=== PATIENT | female | born 1935 | race Two or more races ===

== ENCOUNTER 2017-07-31 17:47 | Inpatient (IN) | payer MEDICARE, BC ==
[~2017-07-31] VITALS: Ht 167.6 cm; Wt 76.7 kg
[2017-07-31] MEDS ORDERED: IV NS 0.9% 1,000 ML BAG IV ONE (18:00)
[2017-07-31] MEDS ORDERED: LORAZEPAM INJ 2 MG/ML VIAL IV ONE (18:00)
--- NOTE | 2017-07-31 18:05 | NUR ---
AAOX3, BIB [facility] FOR WEAKNESS AND DECREASED APPETITE. SKIN IS WARM AND DRY. RESP IS EVEN AND UNLABORED WITH NAD NOTED. SKIN IS WARM AND DRY. PLACED ON MONITOR AND HOSPITAL GOWN. AWAITING MD FOR EVAL.
[2017-07-31] MEDS ORDERED: ATOR40TA PO (18:15)
[2017-07-31] MEDS ORDERED: LORA0.5T PO (18:15)
[2017-07-31] MEDS ORDERED: QUET25TA PO (18:15)
[2017-07-31] MEDS ORDERED: ASPI81TA2 PO (18:15)
[2017-07-31] MEDS ORDERED: OLAN2.5T3 PO (18:15)
[2017-07-31] MEDS ORDERED: ZOLP5TAB7 PO (18:15)
[2017-07-31] MEDS ORDERED: LOPE2CAP PO (18:15)
[2017-07-31] MEDS ORDERED: ESCI10TA PO (18:15)
[2017-07-31] MEDS ORDERED: ACET-2605 PO (18:15)
[2017-07-31 18:18] LABS: BASOPHILS # (AUTO) 0.4 /CMM (0.0-0.2); BASOPHILS % (AUTO) 4.9 % (0.0-2.0); EOSINOPHILS # (AUTO) 0.4 /CMM (0.0-0.7); EOSINOPHILS % (AUTO) 4.6 % (0.0-6.0); HEMATOCRIT 42 % (33-45); HEMOGLOBIN 13.8 g/dL (11.5-14.8); LYMPHOCYTES # (AUTO) 1.5 /CMM (0.8-4.8); LYMPHOCYTES % (AUTO) 18.4 % (20.0-44.0); MEAN CORPUSCULAR HEMOGLOBIN 30 PG (26.0-33.0); MEAN CORPUSCULAR HGB CONC 33 g/dl (31.0-36.0); MEAN CORPUSCULAR VOLUME 92 fL (82-100); MONOCYTES # (AUTO) 0.9 /CMM (0.1-1.30); MONOCYTES % (AUTO) 11.3 % (2.0-12.0); NEUTROPHILS % (AUTO) 60.8 % (43.0-81.0); PLATELET COUNT (AUTO) 260 /CMM (150-450); RED BLOOD CELL COUNT(AUTO) 4.52 MIL/uL (4.0-5.2); WHITE BLOOD COUNT (AUTO) 8.2 K/uL (4.3-11.0)
[2017-07-31 18:28] LABS: CALCIUM, SERUM 8.7 mg/dL (8.5-10.1); CARBON DIOXIDE 29 mmol/L (21-32); CHLORIDE 105 mmol/L (98-107); CREATININE 0.8 mg/dL (0.6-1.3); GLUCOSE 105 mg/dL (74-106); SODIUM SERUM 141 mmol/L (136-145); UREA NITROGEN, BLOOD 16 mg/dL (7-18)
[2017-07-31 18:35] LABS: ALANINE AMINOTRANSFERASE 23 U/L (12-78); ALBUMIN 3.3 g/dL (3.4-5.0); ALKALINE PHOSPHATASE 94 U/L (46-116); ASPARTATE AMINOTRANSFERASE 29 U/L (15-37); BILIRUBIN,DIRECT 0.2 mg/dL (0.0-0.2); BILIRUBIN,TOTAL 0.8 mg/dL (0.2-1.0); TOTAL PROTEIN, SERUM 6.8 g/dL (6.4-8.2)
[2017-07-31 18:39] LABS: TROPONIN I < 0.017 ng/mL (0.00-0.056)
[2017-07-31 18:56] LABS: APPEARANCE,URINE Slightly Cloudy (CLEAR); BILIRUBIN,URINE Negative (NEGATIVE); BLOOD, URINE Trace-intact Ery/uL (NEGATIVE); COLOR,URINE Dark (YELLOW); KETONES,URINE Negative (NEGATIVE); LEUKOCYTE ESTERASE ,URINE Negative (NEGATIVE); NITRITE, URINE Negative (NEGATIVE); PROTEIN,URINE Negative (NEGATIVE); UGLUCOSE Negative (NEGATIVE)
--- NOTE | 2017-07-31 19:10 | NUR ---
RECEIVED REPORT FROM VITO BARBER FOR CYNTHIA PT IN CT AT THIS TIME.
[2017-07-31 19:18] LABS: BACTERIA,URINE Rare /HPF (None Seen); SQUAMOUS EPITHELIAL CELL,UR Few /HPF (None Seen); WBC,URINE NONE SEEN /HPF (0-3)
--- NOTE | 2017-07-31 19:22 | NUR ---
PT RETURNED FROM CT. PT APPEARS COMFORTABLE.
--- NOTE | 2017-07-31 19:39 | NUR ---
ER SPOKE TO DR. BOLAÑOS REGARDING PT ADMISSION.
[2017-07-31 19:47] LABS: THYROID STIMULATING HORMONE 2.222 uIU/mL (0.358-3.74)
--- NOTE | 2017-07-31 20:15 | NUR ---
ASSIGNED TELE BED 103
[2017-07-31] MEDS ORDERED: LORAZEPAM INJ 2 MG/ML VIAL ONE (20:46)
--- NOTE | 2017-07-31 20:52 | NUR ---
REPORT GIVEN TO VITO MATTA FOR CYNTHIA.
[2017-07-31 21:30] VITALS: BP 167/83
--- NOTE | 2017-07-31 21:30 | NUR ---
RN ADMITTING NOTES PATIENT ADMITTED FROM ER, COMING FROM [facility], ADMITTED UNDER THE CARE OF DR. DE LEÓN, CALLED AND NOTIFIED OF PATIENT'S ADMITTANCE TO THE UNIT. ADMISSION ORDERS OBTAINED, NOTED AND CARRIED OUT. PATIENT ADMITTED ON TELE WITH DX OF GENERALIZED WEAKNESS, FAILURE TO THRIVE WITH NOTED MENINGIOMA WITH EDEMA ON THE CT OF HEAD. PATIENT IS NOTED TO BE ALERT, ORIENTED ONLY TO NAME. UNABLE TO AMBULATE AT THIS TIME. PATIENT ABLE TO MAKE BASIC NEEDS KNOWN, DENIES ANY PAIN AND DISCOMFORT. WITH R WRIST G20, FLUSHED AND PATENT, NO SIGNS OF INFILTRATION. SR ON TELE WITH HR IN THE 80s. ON ROOM AIR, >91% SATURATION. BODY CHECK DONE, SKIN IS INTACT, NO SKIN BREAKDOWN. PATIENT'S BELONGING'S LIST DONE, FILED IN CHART. CALLED PATIENT'S FACILITY FOR ANY FURTHER MEDICAL HISTORY OF THE PATIENT, PATIENT WITH ONLY MEDICAL HX OF DEMENTIA PER FACILITY, VACCINATION HISTORY UNKNOWN. ADMIT PROCESS COMPLETED. MED RECON DONE. PATIENT'S NEEDS ANTICIPATED AND MET. SAFETY AND COMFORT ENSURED. FALL PRECAUTIONS CLOSELY OBSERVED. CALL LIGHT IN REACH. WILL MONITOR CLOSELY.
[2017-07-31] MEDS ORDERED: ACETAMINOPHEN 325 MG TABLET PO PRN (22:30)
[2017-07-31] MEDS ORDERED: LORAZEPAM 0.5 MG TABLET PO PRN (22:30)
[2017-07-31] MEDS ORDERED: ONDANSETRON HCL/PF 4 MG/2 ML VIAL IV PRN (22:30)
[2017-08-01] VITALS: BP 144/69
[2017-08-01 04:00] VITALS: BP 171/90
--- NOTE | 2017-08-01 06:20 | NUR ---
RN CLOSING NOTES PATIENT WITH NO ACUTE DISTRESS OBSERVED OVERNIGHT. SLEPT COMFORTABLY, NO ACUTE DISTRESS, RESPIRATION EVEN AND UNLABORED, ON ROOM AIR, SATURATION AT 95%. REMAINS SR, HR OF 68. AM LABS DRAWN. PATIENT KEPT CLEAN AND DRY. NEEDS ANTICIPATED AND MET. SAFETY AND COMFORT ENSURED. BED IN LOW AND LOCKED POSITION. CALL LIGHT IN REACH. WILL ENDORSE ACCORDINGLY FOR CONTINUITY OF CARE.
[2017-08-01 06:32] LABS: BASOPHILS % (AUTO) 0.6 % (0.0-2.0); EOSINOPHILS # (AUTO) 0.5 /CMM (0.0-0.7); EOSINOPHILS % (AUTO) 6.1 % (0.0-6.0); HEMATOCRIT 39 % (33-45); HEMOGLOBIN 13.1 g/dL (11.5-14.8); LYMPHOCYTES # (AUTO) 1.3 /CMM (0.8-4.8); LYMPHOCYTES % (AUTO) 16.3 % (20.0-44.0); MEAN CORPUSCULAR HEMOGLOBIN 31 PG (26.0-33.0); MEAN CORPUSCULAR HGB CONC 33 g/dl (31.0-36.0); MEAN CORPUSCULAR VOLUME 94 fL (82-100); MONOCYTES # (AUTO) 0.9 /CMM (0.1-1.30); MONOCYTES % (AUTO) 12.1 % (2.0-12.0); NEUTROPHILS % (AUTO) 64.9 % (43.0-81.0); PLATELET COUNT (AUTO) 220 /CMM (150-450); RDW COEFFICIENT OF VARIATION 14.2 (11.5-15.0); WHITE BLOOD COUNT (AUTO) 7.7 K/uL (4.3-11.0)
[2017-08-01 07:10] LABS: ALANINE AMINOTRANSFERASE 22 U/L (12-78); ALBUMIN 2.9 g/dL (3.4-5.0); ALKALINE PHOSPHATASE 85 U/L (46-116); ASPARTATE AMINOTRANSFERASE 22 U/L (15-37); BILIRUBIN,TOTAL 0.7 mg/dL (0.2-1.0); CALCIUM, SERUM 8.2 mg/dL (8.5-10.1); CARBON DIOXIDE 26 mmol/L (21-32); CHLORIDE 107 mmol/L (98-107); CREATININE 0.6 mg/dL (0.6-1.3); GLUCOSE 95 mg/dL (74-106); POTASSIUM 3.3 mmol/L (3.5-5.1); SODIUM SERUM 143 mmol/L (136-145); TOTAL PROTEIN, SERUM 6.3 g/dL (6.4-8.2); UREA NITROGEN, BLOOD 11 mg/dL (7-18)
[2017-08-01 07:14] LABS: CHOLESTEROL 110 mg/dL (<200); HDL CHOLESTEROL 67 mg/dL (40-60); LDL 34 mg/dL (0-99); TRIGLYCERIDES 42 mg/dL (30-150)
--- NOTE | 2017-08-01 07:28 | NUR ---
RN NOTES RECEIVED PT FROM [facility] IN STABLE CONDITION.A&OX1. ON ROOM NASAL CANNULA 2L NO SOB OR DISTRESS NOTED. SR ON THE TELE MONITOR HR 63. R WRIST 20 GAUGE IV SITE DRY AND INTACT. SIDE RAILS UPX3, CALL LIGHT WITHIN REACH, BED LOCKED AND IN LOWEST POSITION WILL CONT TO MONITOR.
[2017-08-01 08:00] VITALS: BP_SYST 147; BP_SYST 164; BP_DIAS 77
[2017-08-01] MEDS: PANTOPRAZOLE 40 MG TABLET.DR PO SCH (08:26)
--- NOTE | 2017-08-01 10:00 | NUR ---
RN NOTES PT POTASSIUM 3.3, PHARMACY SAID THAT THEY CAN'T REPLACE BECAUSE DR. DE LEÓN DOESN'T ALLOW THEM TO. DR DE LEÓN CALLED TO GET AN ORDER FOR REPLACEMENT.
--- NOTE | 2017-08-01 11:55 | NUR ---
RN NOTES STILL AWAITING RESPONSE FROM DR DE LEÓN REGARDING PT POTASSIUM.
[2017-08-01 12:00] VITALS: BP 131/70
[2017-08-01] MEDS ORDERED: hydrALAZINE HCL 25 MG TABLET PO PRN (15:00)
[2017-08-01] MEDS ORDERED: POTASSIUM CHLORIDE 20 MEQ TAB.PRT.SR PO ONE (15:00)
[2017-08-01] MEDS: LEVETIRACETAM (250 MG) 250 MG TABLET PO SCH ×2 (15:01→23:09)
[2017-08-01] MEDS: CYANOCOBALAMIN 1,000 MCG/ML VIAL IM SCH (15:02)
[2017-08-01] MEDS: DEXAMETHASONE SOD PHOSPHATE 4 MG/ML VIAL IV SCH ×2 (15:08→23:08)
[2017-08-01 16:00] VITALS: BP_SYST 122; BP_SYST 137; BP_DIAS 53; BP_DIAS 56
[2017-08-01] MEDS: BOOST PLUS FOOD-CHOCLATE 237 ML BOX PO SCH ×2 (16:21→17:00)
--- NOTE | 2017-08-01 18:46 | NUR ---
RN NOTES PT RESTING IN BED COMFORTABLY, PT TRIED PULLING OUT IV 2X, SLEEVE APPLIED. NO SIGNIFICANT CHANGES THROUGHOUT MY SHIFT. PT CLEAN, CHANGED, REPOSITIONED. CALL LIGHT WITHIN REACH, SIDE RAILS UPX3, BED ALARM ON, BED LOCKED AND IN LOWEST POSITION. WILL ENDORSE TO ONCOMING SHIFT.
--- NOTE | 2017-08-01 19:15 | NUR ---
RN INITIAL NOTES RECEIVED ENDORSEMENT FROM PREVIOUS SHIFT WITH REGARDS TO THE PATIENT'S PIV PULLED OUT. NO BLEEDING NOTED ON SITE. PATIENT IS CONFUSED, UNABLE TO FOLLOW SIMPLE COMMANDS AT THIS TIME. WILL ATTEMPT TO TRY TO INSERT NEW PIV SITE. PATIENT ALSO REMOVING NASAL CANNULA, PATIENT WITH NO RESPIRATORY DISTRESS. SR ON TELE, HR OF 94. PATIENT'S SAFETY AND COMFORT ENSURED. WILL MONITOR CLOSELY.
[2017-08-01 20:00] VITALS: BP 111/58
[2017-08-01] MEDS ORDERED: LORAZEPAM INJ 2 MG/ML VIAL IV PRN (20:00)
--- NOTE | 2017-08-01 20:00 | NUR ---
RN NOTES WAS ABLE TO INSERT PIV ON LEFT FOREARM G20. ARM SLEEVE IN PLACE. HOWEVER PATIENT OBSERVED TO BE REMOVING HER ARM SLEEVE AND ATTEMPTING TO PULL ON PIV AND NASAL CANNULA. BILATERAL HAND MITTENS IN PLACE AT THIS TIME FOR PATIENT'S SAFETY. SPOKE WITH DR. DE LEÓN, WAS ABLE TO OBTAIN ORDER FOR MIDLINE INSERTION AND MITTENS. ORDERS NOTED AND CARRIED OUT.
[2017-08-01] MEDS ORDERED: DEXAMETHASONE SOD PHOSPHATE 4 MG/ML VIAL ONE (23:06)
[2017-08-02] VITALS: BP 134/71
[2017-08-02 04:00] VITALS: BP 122/64
--- NOTE | 2017-08-02 04:34 | NUR ---
RN NOTES REFAXED TO PHARMACY THE MEDICATION RECONCILIATION ORDERED AND SIGNED BY DR. DE LEÓN, IT IS NOT REFLECTED ON THE eMAR. CN MADE AWARE. WILL ENDORSE ACCORDINGLY FOR F/UP.
--- NOTE | 2017-08-02 06:20 | NUR ---
RN CLOSING NOTES PATIENT WITH NO ACUTE DISTRESS OBSERVED OVERNIGHT. PATIENT ABLE TO SLEEP COMFORTABLY FOR THE NIGHT. BEHAVIOR OF PULLING OUT LINES KEPT AT MINIMUM WITH BILATERAL HAND MITTENS IN PLACE. PATIENT WITH NO SEIZURE ACTIVITY OBSERVED OVERNIGHT. ALL DUE MEDS GIVEN ORDERED. ASPIRATION PRECAUTION OBSERVED AT ALL TIMES. TURNED AND REPOSITIONED, KEPT CLEAN AND DRY. SAFETY AND COMFORT ENSURED. BED IN LOW AND LOCKED POSITION. CALL LIGHT IN REACH. WILL ENDORSE ACCORDINGLY FOR CONTINUITY OF CARE. Addendum: 08/02/17 at 0651 by SIGRID BUSTILLOS RN PATIENT IS SR AND SB WITH LOWEST IN THE LOW 50s WITH PATIENT SLEEPING COMFORTABLY, NO DISTRESS.
[2017-08-02 08:00] VITALS: BP 143/78
--- NOTE | 2017-08-02 08:00 | NUR ---
RN NOTES RECEIVED PT RESTING IN BED, ON ROOM NASAL CANNULA 2L NO SOB OR DISTRESS NOTED. AWAKE ALERT NOTED WITH CONFUSION, SR ON THE TELE MONITOR HR. R WRIST 20 GAUGE IV SITE DRY AND INTACT. ROMA MIDLINE FLUSHED WITH NS PATENT, SIDE RAILS UPX3, CALL LIGHT WITHIN REACH, BED LOCKED AND IN LOWEST POSITION WILL CONT TO MONITOR.
[2017-08-02] MEDS: LEVETIRACETAM (250 MG) 250 MG TABLET PO SCH ×2 (08:27→21:14)
[2017-08-02] MEDS: PANTOPRAZOLE 40 MG TABLET.DR PO SCH (08:27)
[2017-08-02] MEDS: DEXAMETHASONE SOD PHOSPHATE 4 MG/ML VIAL IV SCH ×2 (08:27→16:38)
[2017-08-02] MEDS: CYANOCOBALAMIN 1,000 MCG/ML VIAL IM SCH (08:27)
[2017-08-02] MEDS: BOOST PLUS FOOD-CHOCLATE 237 ML BOX PO SCH ×2 (08:27→16:38)
[2017-08-02 12:00] VITALS: BP 111/73
[2017-08-02 16:00] VITALS: BP 129/68
--- NOTE | 2017-08-02 19:15 | NUR ---
RN NOTES PT RESTING IN BED COMFORTABLY, NO ACUTE CHANGE IN CONDITION. NO SEIZURE NOTED. AWAKE ALERT WITH CONFUSION, NO DISTRESS NOTED. ALL DUE MEDS GIVEN, NEEDS ATTENDED, MONITORED ACCORDINGLY
--- NOTE | 2017-08-02 19:40 | NUR ---
DX BOARD OPERATOR NOTE PT IN BED AWAKE. A/O X 1 WITH CONFUSION. NO DISTRESS OR DISCOMFORT NOTED. NO S/S/S OF PAIN NOTED. BILATERAL HANDS WITH MITTENS. PT TRYING TO TOUCH HER IV SITES. ROMA WITH MIDLINE INTACT AND PATENT AND LFA WITH #20 G H/L INTACT AND PATENT. DVT ON BILATERAL LOWER EXT'S. REPOSITION HER FOR COMFORT. HEELS OFFLOADED. VSS. SIDE RAILS UP X 2 AND CALL LIGHT WITHIN REACH. CONTINUE TO MONITOR HER.
[2017-08-02 20:00] VITALS: BP 134/61
[2017-08-03] VITALS: BP 130/56
[2017-08-03 04:00] VITALS: BP 141/60
--- NOTE | 2017-08-03 06:33 | NUR ---
DIESEL INSTRUCTOR NOTE PT IN BED AWAKE. PT DIDN'T SLEEP WELL. WATCHING TV. NO DISTRESS OR DISCOMFORT NOTED. DENIES PAIN. MITTENS ON BOTH HAND ON. PT KEPT ON TRYING TO REMOVE THEM. ON TELE SR 70. ALL NEEDS ATTENDED. SIDE RAILS UP X 3 AND CALL LIGHT WITHIN REACH. WILL ENDORSE TO DAYS SHIFT NURSE FOR CONTINUE TO CARE.
[2017-08-03 08:00] VITALS: BP 152/77
--- NOTE | 2017-08-03 08:00 | NUR ---
ALL [facility] CLEARED FOR PT SAFETY
[2017-08-03] MEDS: BOOST PLUS FOOD-CHOCLATE 237 ML BOX PO SCH ×2 (08:33→16:11)
[2017-08-03] MEDS: DEXAMETHASONE SOD PHOSPHATE 4 MG/ML VIAL IV SCH ×2 (08:33→16:11)
[2017-08-03] MEDS: CYANOCOBALAMIN 1,000 MCG/ML VIAL IM SCH (08:33)
[2017-08-03] MEDS: LEVETIRACETAM (250 MG) 250 MG TABLET PO SCH (08:34)
[2017-08-03] MEDS: PANTOPRAZOLE 40 MG TABLET.DR PO SCH (08:42)
[2017-08-03 12:00] VITALS: BP 143/57
[2017-08-03 16:00] VITALS: BP 126/63
--- NOTE | 2017-08-03 16:27 | NUR ---
GAVE REPORT TO BRANDYN FROM [facility], , V/S TAKEN AND RECORDED, PT IS STABLE, SKIN INTACT, KEPT PT CLEAN AND DRY, NO ACUTE DISTRESS NOTED, EXPECTED SOCK IRONER TIME IS 1730. WILL CONTINUE TO MONITOR.
== END 2017-08-03 18:20 | DRG 54 ==
LOC: ER 17:50 → TELE1 20:43
PROVIDERS: ADMIT Internal Medicine; ATTEND Internal Medicine
PROC: 05HF33Z Insertion of Infusion Device into Left Cephalic Vein, Percutaneous Approach (ICD-10-PCS; principal; 2017-08-01)
PROC: B54NZZA Ultrasonography of Left Upper Extremity Veins, Guidance (ICD-10-PCS; 2017-08-01)
DX: D32.9 Benign neoplasm of meninges, unspecified (principal); G93.40 Encephalopathy, unspecified; G93.6 Cerebral edema; E46 Unspecified protein-calorie malnutrition; F03.90 Unspecified dementia, unspecified severity, without behavioral disturbance, psychotic disturbance, mood disturbance, and anxiety; E87.6 Hypokalemia; F99 Mental disorder, not otherwise specified; E78.00 Pure hypercholesterolemia, unspecified; Z68.27 Body mass index [BMI] 27.0-27.9, adult; J32.3 Chronic sphenoidal sinusitis; R53.1 Weakness; R62.7 Adult failure to thrive
CPT/HCPCS: 36415; 70450-TC; 71010-TC; 80048-TC; 80053-TC; 80061-TC; 80076-TC; 81000-TC; 82962-TC; 84443-TC; 84484-TC; 85025-TC; 87081-TC; A4606; J1100; J2060; J3420; J7030; Z7610